=== PATIENT | female | born 1980 | race Caucasian/White ===

== ENCOUNTER 2016-05-25 08:00 | Inpatient (IN) | payer OTHER ==
[~2016-05-25] VITALS: Ht 165.1 cm; Wt 91.4 kg
[~2016-05-25 08:00] MED LIST: ACET500C5 PO; CEPH-443 PO; FAMO-18 PO; ONDA4TAB35 PO
[2016-05-25 09:31] VITALS: BP 131/77; PULSE 68; RESP 20
[2016-05-25 09:35] VITALS: Ht 165.1 cm; Wt 91.4 kg
[2016-05-25] MEDS: LACTATED RINGER'S 1,000 ML IV SCH ×3 (09:45→21:06)
[2016-05-25] MEDS ORDERED: METHYLERGONOVINE 0.2 MG INJ IM PRN (10:00)
[2016-05-25] MEDS ORDERED: LIDOCAINE 1% (MPF) 30 ML INJ INJ PRN (10:00)
[2016-05-25] MEDS ORDERED: OXYTOCIN 30 UNITS/LR 500 ML IV PRN ×2 (10:00)
[2016-05-25] MEDS ORDERED: OXYTOCIN 30 UNITS/LR 500 ML IV SCH ×2 (10:00)
[2016-05-25] MEDS ORDERED: CARBOPROST 250 MCG INJ IM PRN (10:00)
[2016-05-25] MEDS ORDERED: BUTORPHANOL 2 MG INJ IV PRN ×2 (10:00)
[2016-05-25] MEDS ORDERED: MISOPROSTOL 200 MCG TAB PR PRN (10:00)
[2016-05-25] MEDS ORDERED: IBUPROFEN 600 MG TAB PO PRN (10:00)
[2016-05-25] MEDS ORDERED: LACTATED RINGER'S 1,000 ML IV PRN (10:20)
[2016-05-25 10:27] LABS: LYMPHOCYTES # 1.3 10^3/ul (0.8-2.9); MONOCYTE # 0.6 10^3/ul (0.3-0.9)
[2016-05-25 10:31] LABS: BASOPHILS % 0.1 % (0.0-2.0); EOSINOPHILS % 0.4 % (0.0-7.0); HEMATOCRIT 35.8 % (37.0-47.0); HEMOGLOBIN 12.3 g/dl (12.0-16.0); LYMPHOCYTES % 26.4 % (15.0-51.0); MEAN CORPUSCULAR HEMOGLOBIN 30.4 pg (29.0-33.0); MEAN CORPUSCULAR HGB CONC 34.3 g/dl (32.0-37.0); MEAN CORPUSCULAR VOLUME 88.8 fl (82.0-101.0); MEAN PLATELET VOLUME 9.9 fl (7.4-10.4); MONOCYTES % 12.1 % (0.0-11.0); PLATELET COUNT 71 10^3/UL (140-440); RED BLOOD COUNT 4.03 10^6/ul (4.20-5.40); RED CELL DISTRIBUTION WIDTH 13.3 % (11.5-14.5); UNCORRECTED WBC 4.9 10^3/ul (4.8-10.8); WHITE BLOOD COUNT 4.9 10^3/ul (4.8-10.8)
[2016-05-25 10:32] LABS: CONDITION 1; LH ANALYZER COMMENTS 1; SUSPECT 1
[2016-05-25 10:37] LABS: INR 1.06; PROTIME 13.8 Sec (12.2-14.2); PT RATIO 1.1
[2016-05-25 10:38] LABS: PARTIAL THROMBOPLASTIN TIME 27.3 Sec (25.0-35.0)
[2016-05-25] MEDS ORDERED: DINOPROSTONE 10 MG VAG SUPP VAG ONE (11:30)
[2016-05-25] MEDS ORDERED: FER325 PO (11:39)
[2016-05-25] MEDS ORDERED: PRENAT PO (11:39)
--- NOTE | 2016-05-25 12:13 | RADRPT ---
PROCEDURE: US OB. CLINICAL INDICATION: Labor induction. TECHNIQUE: Multiple sonographic images of the pelvis were obtained. Transabdominal imaging only w as performed. The images were reviewed on a PACS workstation. COMPARISON: No prior studies are available for comparison. FINDINGS: There is a single living intrauterine gestation in cephalic position. There is an anterior placenta. There is no evidence of previa. The cervix measures cm. There is a three-vessel cord with a normal insertion. Adequate amnionic fluid is demonstrated. The amniotic fluid index is 8.3 cm. Active cardiac motion is seen at 139 beats per minute. Estimated weight is 2948 plus/minus 442 g. The biparietal diameter is 9.31 cm consistent with 39-ixws-6-day gestation.. The head circumference is 33.13 cm consistent with a 79-imar-1-day gestation. The abdominal circumference is 32.61 cm consistent with 31-otym-2-day gestation. The femur length is 6.86 cm consistent with 79-vuls-3-day gestation. IMPRESSION: 1. Single living intrauterine gestation in cephalic position with a mean gestational age by ultrasound of 34-lotx-5-day with estimated date of delivery of 06/16/2016. 2. Estimated weight is 2948 plus/minus 442 g. RPTAT: [facility] Physician Erik Date Time Electronically viewed and signed by Physician Erik on 05/25/2016 12:12 /
[2016-05-26] MEDS ORDERED: DINOPROSTONE 10 MG VAG SUPP VAG ONE
[2016-05-26] MEDS: LACTATED RINGER'S 1,000 ML IV SCH ×3 (05:12→22:13)
[2016-05-26 15:41] LABS: BASOPHILS % 0.4 % (0.0-2.0); EOSINOPHILS % 0.2 % (0.0-7.0); HEMATOCRIT 34.2 % (37.0-47.0); HEMOGLOBIN 11.6 g/dl (12.0-16.0); LYMPHOCYTES # 0.9 10^3/ul (0.8-2.9); MEAN CORPUSCULAR HEMOGLOBIN 30.3 pg (29.0-33.0); MEAN CORPUSCULAR HGB CONC 33.9 g/dl (32.0-37.0); MEAN CORPUSCULAR VOLUME 89.4 fl (82.0-101.0); MEAN PLATELET VOLUME 11.7 fl (7.4-10.4); MONOCYTE # 0.5 10^3/ul (0.3-0.9); MONOCYTES % 9.8 % (0.0-11.0); NEUTROPHIL # 3.3 10^3/ul (1.6-7.5); NEUTROPHILS % 70.6 % (39.0-77.0); RED BLOOD COUNT 3.83 10^6/ul (4.20-5.40); RED CELL DISTRIBUTION WIDTH 13.1 % (11.5-14.5); UNCORRECTED WBC 4.7 10^3/ul (4.8-10.8); WHITE BLOOD COUNT 4.7 10^3/ul (4.8-10.8)
[2016-05-26 15:44] LABS: CONDITION 1; LH ANALYZER COMMENTS 1; SUSPECT 1
[2016-05-26 15:45] LABS: PLATELET COUNT 80 10^3/UL (140-440)
[2016-05-26] MEDS: OXYTOCIN 30 UNITS/LR 500 ML IV SCH (18:19)
[2016-05-27] MEDS: LACTATED RINGER'S 1,000 ML IV SCH ×2 (05:59→06:02)
[2016-05-27] MEDS ORDERED: MINERAL OIL LIGHT 10 ML VIAL TOP ONE (07:00)
[2016-05-27] MEDS ORDERED: DINOPROSTONE 10 MG VAG SUPP VAG ONE (15:00)
[2016-05-27 15:29] LABS: ADD UMIC YES; URINE BILIRUBIN (Dip) NEGATIVE (NEGATIVE); URINE BLOOD (Dip) TRACE (NEGATIVE); URINE COLOR LT. YELLOW (YELLOW); URINE GLUCOSE (Dip) NEGATIVE (NEGATIVE); URINE KETONES (Dip) 15 (NEGATIVE); URINE LEUKOCYTE ESTERASE (Dip) TRACE (NEGATIVE); URINE NITRITE (Dip) NEGATIVE (NEGATIVE); URINE TOTAL PROTEIN (Dip) NEGATIVE (NEGATIVE); URINE UROBILINOGEN (Dip) 0.2 E.U./dL (0.1-1.0)
[2016-05-27 15:45] LABS: BACTERIA,URINE FEW; SQUAMOUS EPITHELIAL CELL,UR MANY; URINE RBCS 0-2 /HPF (0)
[2016-05-27 18:14] LABS: BASOPHILS % 0.4 % (0.0-2.0); EOSINOPHILS % 0.3 % (0.0-7.0); HEMATOCRIT 34.7 % (37.0-47.0); HEMOGLOBIN 11.7 g/dl (12.0-16.0); LYMPHOCYTES # 0.8 10^3/ul (0.8-2.9); LYMPHOCYTES % 22.2 % (15.0-51.0); MEAN CORPUSCULAR HEMOGLOBIN 30.1 pg (29.0-33.0); MEAN CORPUSCULAR HGB CONC 33.6 g/dl (32.0-37.0); MEAN CORPUSCULAR VOLUME 89.4 fl (82.0-101.0); MEAN PLATELET VOLUME 11.9 fl (7.4-10.4); MONOCYTE # 0.4 10^3/ul (0.3-0.9); MONOCYTES % 10.2 % (0.0-11.0); NEUTROPHIL # 2.5 10^3/ul (1.6-7.5); NEUTROPHILS % 66.9 % (39.0-77.0); PLATELET COUNT 81 10^3/UL (140-440); RED BLOOD COUNT 3.88 10^6/ul (4.20-5.40); RED CELL DISTRIBUTION WIDTH 13.3 % (11.5-14.5); UNCORRECTED WBC 3.7 10^3/ul (4.8-10.8); WHITE BLOOD COUNT 3.7 10^3/ul (4.8-10.8)
[2016-05-27 18:25] LABS: CONDITION 1; INR 1.11; LH ANALYZER COMMENTS 1; PARTIAL THROMBOPLASTIN TIME 27.5 Sec (25.0-35.0); PROTIME 14.3 Sec (12.2-14.2); PT RATIO 1.1; SUSPECT 1
[2016-05-27 18:26] LABS: ALBUMIN 3.2 g/dl (3.3-4.9)
[2016-05-27 18:27] LABS: POTASSIUM 3.4 mmol/L (3.5-5.1)
[2016-05-27 18:29] LABS: ALBUMIN/GLOBULIN RATIO 0.96; BILIRUBIN,INDIRECT 1.2 mg/dl (0-1.1); BILIRUBIN,TOTAL 1.2 mg/dl (0.2-1.3); CREATININE 0.53 mg/dl (0.44-1.00); TOTAL PROTEIN 6.5 g/dl (6.1-8.1)
[2016-05-27 18:30] LABS: CALCIUM 8.6 mg/dl (8.4-10.2); URIC ACID 3.5 mg/dl (3.1-7.9)
[2016-05-27 19:19] LABS: PLATELET ESTIMATE PLT APPEAR DECREASED
[2016-05-27] MEDS: ACETAMINOPHEN 325 MG TAB PO PRN (22:49)
[2016-05-28] MEDS: LACTATED RINGER'S 1,000 ML IV SCH ×2 (01:01→09:04)
[2016-05-28] MEDS ORDERED: FENTAnyl 2MCG/ML-ROPIV 0.2% 100 ML ONE (14:28)
[2016-05-28] MEDS: OXYTOCIN 30 UNITS/LR 500 ML IV SCH (14:46)
[2016-05-28] MEDS ORDERED: ONDANSETRON 4 MG INJ IV PRN (15:00)
[2016-05-28] MEDS ORDERED: KETOROLAC 30 MG INJ IV PRN (15:00)
[2016-05-28] MEDS ORDERED: NALOXONE (0.4 MG/ML) INJ IV PRN (15:00)
[2016-05-28] MEDS ORDERED: DIPHENHYDRAMINE 50 MG INJ IV PRN (15:00)
[2016-05-28] MEDS ORDERED: PROCHLORPERAZINE 10 MG INJ IV PRN (15:00)
[2016-05-28] MEDS ORDERED: HYDROmorphONE 1 MG/ML SYG IV PRN ×2 (15:00)
[2016-05-28] MEDS: DEXTROSE 5%-LR 1,000 ML IV SCH (17:29)
[2016-05-28] MEDS: FENTAnyl 2MCG/ML-ROPIV 0.2% 100 ML BAG EPI SCH (23:58)
[2016-05-29] MEDS ORDERED: AMPICILLIN 2 GM/NS (PMX) 100 ML IV ONE (01:00)
[2016-05-29] MEDS: LACTATED RINGER'S 1,000 ML IV SCH ×3 (01:03→21:34)
[2016-05-29] MEDS: DEXTROSE 5%-LR 1,000 ML IV SCH ×2 (01:30→09:30)
[2016-05-29] MEDS: AMPICILLIN 1 GM/NS (PMX) 50 ML IV SCH ×3 (04:34→13:00)
[2016-05-29] MEDS: FENTAnyl 2MCG/ML-ROPIV 0.2% 100 ML BAG EPI SCH ×2 (06:16→12:03)
[2016-05-29] MEDS: ACETAMINOPHEN 325 MG TAB PO PRN ×2 (07:23→11:31)
[2016-05-29] MEDS ORDERED: CEFAZOLIN 2 GM/50 ML (PMX) 50 ML IVPB ONE (13:29)
--- NOTE | 2016-05-29 13:36 | DELSUM ---
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 Babies in Womb: 1 Attempted: No Labor Anesthesia: Epidural LABOR INFORMATION Reason for Induction: Postterm Onset of Labor: 05/26/2016 03:00 Complete Dilatation: 05/29/2016 10:50 Cervical Ripening Agents: Cervidil Cervical Ripening Agents: Cervidil Cervical Ripening Agents: Cervidil Cervical Ripening Agents: Cervidil Cervical Ripening Agents: Cervidil (Annotations: #[address]) Cervical Ripening Agents: Cervidil Cervical Ripening Agents: Cervidil Other Ripening Agents: PLACED CERVIDIL MORE POSTERIOR CERVIX Oxytocin: Induction Group B Beta Strep: Negative Antibiotics # of Doses: 3 Antibiotics Time of Last Dose: 0900 Steroids Given: None Reason Steroids Not Administered: Not Applicable MEMBRANES Membranes Rupture Method: Artificial Rupture of Membranes: 05/28/2016 13:13 Length of Rupture (hr): 23.50 Amniotic Fluid Color: Clear Amniotic Fluid Amount: Scant Amniotic Fluid Odor: Normal STAGES OF LABOR Stage 1 hr: 79 Stage 1 min: 50 Stage 2 hr: 1 Stage 2 min: 53 Stage 3 hr: 0 Stage 3 min: 3 Total Time in Labor hr: 81 Total Time in Labor min: 46 VAGINAL DELIVERY Episiotomy: Median Laceration Extension: First Degree Laceration Type: Vaginal; Sulcus Laceration Repair: Yes Initial Vag Sponge Count: 30 Final Vag Sponge Count: 30 Initial Vag Sharps Count: 3 Final Vag Sharps Count: 3 Sponge Count Correct: Yes; Vaginal Sweep Performed Sharps Count Correct: Yes BABY A INFORMATION Infant Delivery Date/Time: 05/29/2016 12:43 Method of Delivery: Vaginal Method of Delivery: Vaginal Born in Route : No : N/A Forceps: N/A Vacuum Extraction: N/A Shoulder Dystocia : N/A SHOULDER DYSTOCIA BABY A Infant Delivery Date/Time: 05/29/2016 12:43 PRESENTATION/POSITION BABY A Presentation: Cephalic Presentation: Cephalic Presentation: Cephalic Presentation: Cephalic Presentation: Cephalic Presentation: Cephalic Presentation: Cephalic Presentation: Cephalic Presentation: Cephalic Presentation: Cephalic Presentation: Cephalic Cephalic Presentation: Vertex Vertex Position: Left Occipital Anterior Breech Presentation: N/A PLACENTA INFORMATION BABY A Placenta Delivery Time : 05/29/2016 12:46 Placenta Method of Delivery: Spontaneous Placenta Method of Delivery: Spontaneous Placenta Status: Delivered SCORES BABY A Heart Rate 1 min: >100 bpm Resp Effort 1 min: Good Cry Reflex Irritability 1 min: Cough/Sneeze/Pulls Away Muscle Tone 1 min: Active Motion Color 1 min: Body [place], Extremit Blue Resuscitation Effort 1 min: Tactile Stimulation SCORE 1 MIN: 9 Heart Rate 5 min: >100 bpm Resp Effort 5 min: Good Cry Reflex Irritability 5 min: Cough/Sneeze/Pulls Away Muscle Tone 5 min: Active Motion Color 5 min: Body [place], Extremit Blue Resuscitation Effort 5 min: Tactile Stimulation SCORE 5 MIN: 9 INFORMATION BABY A Gestational Age at Delivery: 40.6 Gestational Status: Full Term- 39- 40.6 Weeks Infant Outcome : Liveborn Condition : Stable Sex: Female IDENTIFICATION/MEDS BABY A ID Band Number: [id number] ID Band Location: Right Leg; Left Arm Sensor Applied: Yes Sensor Number: [id number] Sensor Location : Cord Clamp Vitamin K Given : Not Given Erythromycin Given: Not Given WEIGHT/LENGTH BABY A Infant Birthweight (gm): 3350 Infant Weight (lb): 7 Infant Weight (oz): 6 Infant Length (in): 20.00 Infant Length (cm): 50.80 CORD INFORMATION BABY A No. Cord Vessels: 3 Nuchal Cord : Around Neck x1, Loose Nuchal Cord- Other: 0 True Knot: 0 Cord Blood Taken: Yes Banking/Donate Info: NO Infant Suction: Mouth; Nose ASSESSMENT BABY A Infant Complications: Decreased Variability; Multiple Variable Decels Physical Findings at Delivery: Within Normal Limits Respirations: Appears Normal [place]/ALS Called : No Infant Care By: Jerad VARGAS RN Transferred To: Remains with Mother
--- NOTE | 2016-05-29 13:36 | OPRPT ---
Intraop Record Datetime Report Generated by CPN: 05/29/2016 13:36 Datetime: 05/27/2016 23:18 Drug Allergies/Reactions: No Known Allergy (05/27/2016) Datetime: 05/25/2016 10:31 Food Allergies/Reactions: none Latex Allergies/Reactions: No Latex Allergies Datetime: 05/25/2016 08:48 Drug Allergies/Reactions: No Known Allergy (12/18/2015)
[2016-05-29] MEDS ORDERED: CEFAZOLIN 2 GM/50 ML (PMX) 50 ML IVPB SCH (14:00)
--- NOTE | 2016-05-29 14:08 | LDN ---
Date/Time of Note Date/Time of Note DATE: 05/29/16 TIME: 14:04 Delivery Summary normal vaginal delivery after prlong induction Placenta Delivered: Spontaneously Meconium: none Perineum intact?: Yes Perineal laceration repair: multiple vaginal laceratiom tissue was extremely friable like suturing on bread Anesthesia type: Epidural Estimated blood loss: 400 Sponge & Needle done & correct: Yes All needle counts correct: Yes Any foreign bodies felt in the: No Problems: Delivery Information Sex Sex: female Apgars 1 Minute: 9 5 Minute: 9 Suctioning Nose & mouth suctioned at janette: Yes Delee suction performed: No Umbilical Cord Umbilical cord with: 3 Vessels Cord presentations: nuchal cord Nuchal cord present X: 1 Cord Blood was obtained: Yes Mother & Baby Disposition Disposition Mom & Baby to Maternity; Good: Yes Mom transferred to: Other () Baby to NICU: No GAYATRI PETERSON MD May 29, 2016 14:08
--- NOTE | 2016-05-29 14:12 | HP ---
Date/Time of Note Date/Time of Note DATE: 05/29/16 TIME: 14:08 OB - History Hx of Present Chief Complaint: for induction for postdate Estimated Due Date: May 23, 2016 : 1 Para: 0 Spontaneous : 0 Care: Good Care Ultrasounds: Normal mid trimester US Obstetrical Complications: Other (thrombocytopenia) Past Family/Social History * Past Medical, Surgical, Family and Obstetric Histories reviewed from chart. Blood Type: B+ Rubella: immune RPR/VDRL: Negative GBS Status: Negative HBsAG: Negative OB Admission Exam Vital Signs Vital Signs Vital Signs Date Time Temp Pulse Resp B/P Pulse Ox O2 Delivery O2 Flow Rate FiO2 05/25/16 09:31 98.0 68 20 131/77 Room Air Physical Exam HEENT: WNL Heart: Rhythm Normal Lungs: Clear, Equal Abdomen: WNL Extremities: Normal Reflexes: Normal Cervical Dilatation: None Effacement: 0% Station: -3 Membranes: Intact Amniotic Fluid: Unevaluable Heart Rate: 140's Accelerations: Accelerations Present Decelerations: No Decelerations Varibility: Moderate Contractions on Admission: >10 Minutes Apart Intensity: Mild Last 72 hours Lab Results CBC & BMP 05/26/16 14:52 05/27/16 17:45 Liver Function Test 05/27/16 17:45 Alanine Aminotransferase (ALT/SGPT) 22 Albumin 3.2 L Alkaline Phosphatase 168 H Aspartate Amino Transf (AST/SGOT) 20 Direct Bilirubin 0.00 Total Protein 6.5 OB Assessment/Plan Reason for admission: induction of labor Other Assessment: postdate Induction Method: per Misoprostol Protocol GAYATRI PETERSON MD May 29, 2016 14:12
[2016-05-29 15:30] VITALS: BP 130/63; PULSE 76; RESP 18
[2016-05-29 16:00] VITALS: BP 106/60; PULSE 71; RESP 19
[2016-05-29] MEDS ORDERED: OXYTOCIN 30 UNITS/LR 500 ML IV PRN (16:00)
[2016-05-29] MEDS ORDERED: WITCH HAZEL/GLYCERIN PAD PR PRN (16:00)
[2016-05-29] MEDS ORDERED: METHYLERGONOVINE 0.2 MG INJ IM PRN (16:00)
[2016-05-29] MEDS ORDERED: CARBOPROST 250 MCG INJ IM PRN (16:00)
[2016-05-29] MEDS ORDERED: OXYCODONE/ASPIRIN (4.88/325) TAB PO PRN (16:00)
[2016-05-29] MEDS ORDERED: MISOPROSTOL 200 MCG TAB PR PRN (16:00)
[2016-05-29] MEDS ORDERED: LANOLIN 7 GM TUBE TOP PRN (16:00)
[2016-05-29] MEDS ORDERED: BENZOCAINE 20% 56 ML SPRAY TOP PRN (16:00)
[2016-05-29] MEDS ORDERED: ZOLPIDEM 5 MG TAB PO PRN (16:00)
[2016-05-29] MEDS: OXYCODONE/ASPIRIN (4.88/325) TAB PO PRN (17:40)
[2016-05-29] MEDS: IBUPROFEN 600 MG TAB PO SCH (18:00)
[2016-05-29 20:20] VITALS: BP 138/81; PULSE 70; RESP 18
[2016-05-29] MEDS: SENNA/DOCUSATE NA (8.6MG/50MG) TAB PO SCH (21:25)
[2016-05-30 00:20] VITALS: BP 134/83; PULSE 74; RESP 16
[2016-05-30] MEDS: IBUPROFEN 600 MG TAB PO SCH ×4 (00:24→18:13)
[2016-05-30] MEDS: LACTATED RINGER'S 1,000 ML IV SCH ×3 (01:56→17:56)
[2016-05-30 04:30] VITALS: BP 119/58; PULSE 70; RESP 16
[2016-05-30 08:00] VITALS: BP 127/77; PULSE 57; RESP 18
[2016-05-30 09:00] LABS: HEMATOCRIT 28.1 % (37.0-47.0); HEMOGLOBIN 9.4 g/dl (12.0-16.0); MEAN CORPUSCULAR HGB CONC 33.6 g/dl (32.0-37.0); MEAN CORPUSCULAR VOLUME 89.4 fl (82.0-101.0); MEAN PLATELET VOLUME 12.4 fl (7.4-10.4); RED BLOOD COUNT 3.14 10^6/ul (4.20-5.40); RED CELL DISTRIBUTION WIDTH 13.6 % (11.5-14.5); UNCORRECTED WBC 11.5 10^3/ul (4.8-10.8); WHITE BLOOD COUNT 11.5 10^3/ul (4.8-10.8)
[2016-05-30 09:02] LABS: SUSPECT 1
[2016-05-30 09:03] LABS: CONDITION 1; LH ANALYZER COMMENTS 1
[2016-05-30 09:04] LABS: PLATELET COUNT 72 10^3/UL (140-440)
[2016-05-30 10:23] LABS: EOSINOPHILS # 0.2 10^3/ul (0.0-0.5); LYMPHOCYTES # 1.6 10^3/ul (0.8-2.9); MONOCYTE # 0.8 10^3/ul (0.3-0.9); NEUTROPHIL # 8.4 10^3/ul (1.6-7.5)
[2016-05-30 10:25] LABS: PLATELET ESTIMATE PLT APPEAR DECREASED
[2016-05-30] MEDS: OXYCODONE/ASPIRIN (4.88/325) TAB PO PRN ×2 (11:16→21:39)
[2016-05-30] MEDS: SENNA/DOCUSATE NA (8.6MG/50MG) TAB PO SCH ×2 (11:16→21:32)
--- NOTE | 2016-05-30 14:55 | PN ---
Date/Time of Note Date/Time of Note DATE: 05/30/16 TIME: 14:53 OB Subjective Subjective Subjective no c/o no bm still have ray in due to vaginal packing OB Objective Objective Objective vss afebrile fundus firm lochia min ext neg OB Assessment/Plan Other Assessment: stable Other plan: vaginal packing removed repeat cbc in am GAYATRI PETERSON MD May 30, 2016 14:55
[2016-05-30 16:59] VITALS: BP 125/72; PULSE 74; RESP 18
[2016-05-30 17:28] LABS: ADD UMIC YES; URINE BILIRUBIN (Dip) NEGATIVE (NEGATIVE); URINE BLOOD (Dip) 3+ (NEGATIVE); URINE COLOR LT. YELLOW (YELLOW); URINE GLUCOSE (Dip) NEGATIVE (NEGATIVE); URINE KETONES (Dip) NEGATIVE (NEGATIVE); URINE LEUKOCYTE ESTERASE (Dip) 1+ (NEGATIVE); URINE NITRITE (Dip) NEGATIVE (NEGATIVE); URINE TOTAL PROTEIN (Dip) NEGATIVE (NEGATIVE); URINE UROBILINOGEN (Dip) 0.2 E.U./dL (0.1-1.0)
[2016-05-30 18:06] LABS: BACTERIA,URINE RARE; SQUAMOUS EPITHELIAL CELL,UR FEW
[2016-05-30 19:50] VITALS: BP 105/47; PULSE 62; RESP 20
[2016-05-31] MEDS: IBUPROFEN 600 MG TAB PO SCH ×4 (00:41→17:51)
[2016-05-31] MEDS: LACTATED RINGER'S 1,000 ML IV SCH (01:56)
[2016-05-31 05:30] VITALS: BP 120/59; PULSE 56; RESP 20
[2016-05-31 07:48] LABS: BASOPHILS % 0.3 % (0.0-2.0); EOSINOPHILS # 0.1 10^3/ul (0.0-0.5); EOSINOPHILS % 0.6 % (0.0-7.0); HEMATOCRIT 27.8 % (37.0-47.0); HEMOGLOBIN 9.5 g/dl (12.0-16.0); LYMPHOCYTES # 1.3 10^3/ul (0.8-2.9); LYMPHOCYTES % 14.5 % (15.0-51.0); MEAN CORPUSCULAR HEMOGLOBIN 30.5 pg (29.0-33.0); MEAN CORPUSCULAR HGB CONC 34.3 g/dl (32.0-37.0); MEAN CORPUSCULAR VOLUME 88.9 fl (82.0-101.0); MONOCYTE # 0.5 10^3/ul (0.3-0.9); MONOCYTES % 5.8 % (0.0-11.0); NEUTROPHILS % 78.8 % (39.0-77.0); PLATELET COUNT 82 10^3/UL (140-440); RED BLOOD COUNT 3.12 10^6/ul (4.20-5.40); RED CELL DISTRIBUTION WIDTH 13.8 % (11.5-14.5); UNCORRECTED WBC 8.9 10^3/ul (4.8-10.8); WHITE BLOOD COUNT 8.9 10^3/ul (4.8-10.8)
[2016-05-31 08:10] VITALS: BP 106/56; PULSE 57; RESP 19
[2016-05-31 08:17] LABS: CONDITION 1; LH ANALYZER COMMENTS 1; SUSPECT 1
[2016-05-31] MEDS ORDERED: DIPHTH/TET/ACEL PERTUSS (ADULT) 0.5 ML VIAL IM* ONE (09:00)
[2016-05-31] MEDS: SENNA/DOCUSATE NA (8.6MG/50MG) TAB PO SCH (09:24)
--- NOTE | 2016-05-31 13:04 | PD.PPDC ---
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
--- NOTE | 2016-05-31 13:23 | DS ---
Date/Time of Note Date/Time of Note DATE: 05/31/16 TIME: 13:21 Obstetrical Discharge Record Final Diagnosis Final Diagnosis: Term delivered Vaginal Delivery Obstetrical Delivery: Spontaneous, Episiotomy, Repaired Complications Other (gestational thrombocytopenia) Augmentation: Yes Induction: Yes Condition on Discharge Physical Assessment Last Vitals: vss afebrile Bowel Movement: No Breast: Soft, non-tender Fundus: Firm Episiotomy: ok Calf Tenderness: No Patient Condition: Stable GAYATRI PETERSON MD May 31, 2016 13:22
[2016-05-31 16:05] VITALS: BP 119/66; PULSE 59; RESP 19
[2016-05-31] MEDS: OXYCODONE/ASPIRIN (4.88/325) TAB PO PRN (16:05)
== END 2016-05-31 18:50 | disposition home or self-care (01) | DRG 775 ==
LOC: L-D 08:48 → PP1 05-29 15:16
PROVIDERS: ADMIT Obstetrics & Gynecology; ATTEND Obstetrics & Gynecology
PROC: 10907ZC Drainage of Amniotic Fluid, Therapeutic from Products of Conception, Via Natural or Artificial Opening (ICD-10-PCS; principal; 2016-05-29)
PROC: 10E0XZZ Delivery of Products of Conception, External Approach (ICD-10-PCS; 2016-05-29)
PROC: 0W8NXZZ Division of Female Perineum, External Approach (ICD-10-PCS; 2016-05-29)
PROC: 3E0P7GC Introduction of Other Therapeutic Substance into Female Reproductive, Via Natural or Artificial Opening (ICD-10-PCS; 2016-05-29)
DX: O48.0 Post-term pregnancy (principal); O69.81X0 Labor and delivery complicated by cord around neck, without compression, not applicable or unspecified; Z3A.40 40 weeks gestation of pregnancy; O70.0 First degree perineal laceration during delivery; Z37.0 Single live birth
CPT/HCPCS: 62319; 76816; 80053; 81001; 81003; 84560; 85025; 85610; 85730; 86592; 86900; 86901; 87086; 87340; 90715; 99464; J0690; J2590; J3010; J7120; J7121